=== PATIENT | male | born 1970 | race Hispanic/Latino ===

== ENCOUNTER 2018-05-01 22:28 | Emergency (ER) | payer SELFPAY ==
[2018-05-01 22:32] VITALS: BP 118/73; PULSE 106; RESP 18; TEMP 36.8; O2SAT 99
--- NOTE | 2018-05-01 22:32 | DI.RAD.S_ITS ---
PROCEDURE: XR ELBOW LT 2V INDICATIONS: severe pain post fall TECHNIQUE: 2 views of the elbow were acquired. COMPARISON: None. FINDINGS: Bones: No fractures or dislocations. No suspicious bony lesions. Soft tissues: No elbow joint effusion. No suspicious soft tissue calcifications. IMPRESSION: No fracture. No osseous lesion. If symptoms and/or clinical suspicion for pathology persists, further assessment with repeat radiographs (7-10 days) or advanced imaging (e.g. CT, MRI or bone scan) may be helpful. Dictated by: Farheen Prasad MD, PhD on 05/02/2018 at 9:19 Approved by: Farheen Prasad MD, PhD on 05/02/2018 at 9:20
--- NOTE | 2018-05-01 22:32 | DI.CT.S_ITS ---
PROCEDURE: CT THORACIC SPINE WO CON INDICATIONS: fall with severe midline bony pain TECHNIQUE: Noncontrast 3 mm thick sections acquired through the region of interest in the thoracic spine. Sagittal and coronal reformats were then constructed. For radiation dose reduction, the following was used: automated exposure control. COMPARISON: [facility], CT, CT LUMBAR SPINE WO CON, 05/01/2018, 22:48. FINDINGS: Image quality: Excellent. Bones: There is normal overall bony alignment. No acute vertebral body compression fractures. No suspicious sclerotic or lytic bony lesions. Central spinal canal is of normal overall caliber. Multilevel degenerative disc disease and facet arthropathy. Degenerative disc changes are most pronounced at the C5-C6 and C6-C7 levels. Soft tissues: No paravertebral masses or hematomas. Visualized posteromedial lungs appear clear. IMPRESSION: No fracture. No acute osseous lesion. If symptoms and/or clinical suspicion for pathology persists, evaluation with MRI may be helpful for further assessment. Dictated by: Fahreen Prasad MD, PhD on 05/02/2018 at 8:35 Approved by: Farheen Prasad MD, PhD on 05/02/2018 at 8:40
--- NOTE | 2018-05-01 22:32 | DI.CT.S_ITS ---
PROCEDURE: CT LUMBAR SPINE WO CON INDICATIONS: fall with severe midline bony pain TECHNIQUE: Noncontrast 3 mm thick sections acquired from the T12 level to the sacrum. Sagittal and coronal reformats were constructed. For radiation dose reduction, the following was used: automated exposure control. COMPARISON: None. FINDINGS: Image quality: Limited by patient motion. Bones: There is normal bony alignment. No acute vertebral body compression fractures. No suspicious lytic or blastic bony lesions. Central spinal caliber is of normal overall caliber. No pars defects. Soft tissues: No retroperitoneal masses or hematomas. Visualized aorta is normal in caliber. Scattered atherosclerotic calcifications involving the visualized abdominal and pelvic vasculature. IMPRESSION: 1. Image quality degraded by patient motion artifact. 2. No fracture or acute osseous abnormality within the limitations related to motion artifact. If symptoms and/or clinical suspicion for pathology persists, evaluation with MRI may be helpful for further assessment. Dictated by: Farheen Prasad MD, PhD on 05/02/2018 at 8:32 Approved by: Farheen Prasad MD, PhD on 05/02/2018 at 8:34
--- NOTE | 2018-05-01 22:32 | DI.RAD.S_ITS ---
PROCEDURE: XR SHOULDER LT MIN 2V INDICATIONS: pain after fall TECHNIQUE: 2 views of the shoulder were acquired. COMPARISON: None. FINDINGS: Bones: No fractures or dislocations. No suspicious bony lesions. Visualized ribs appear intact. Soft tissues: No suspicious soft tissue calcifications. IMPRESSION: No fracture. No osseous lesion. If symptoms and/or clinical suspicion for pathology persists, further assessment with repeat radiographs (7-10 days) or advanced imaging (e.g. CT, MRI or bone scan) may be helpful. Dictated by: Farheen Prasad MD, PhD on 05/02/2018 at 9:20 Approved by: Farheen Prasad MD, PhD on 05/02/2018 at 9:20
[2018-05-01] MEDS: HYDROMORPHONE 2 MG INJ 0.5 MG IM (22:49)
--- NOTE | 2018-05-01 23:16 | ED_ITS ---
HPI - Fall General Chief Complaint: Fall Stated Complaint: Fall with intoxication Time Seen by Provider: 05/01/18 22:32 Source: patient and EMS Mode of arrival: EMS History of Present Illness HPI Narrative: 47-year-old male with no significant medical history presents by EMS for the evaluation of severe left arm pain after an unwitnessed fall in the bathroom at the [facility]. He admits to having consumed 5 beers tonight. He did not strike his head and denies any loss of consciousness nor nausea or vomiting. He has severe pain in his arm and back, both of which are worsened by range of motion. He is awake, alert and oriented with GCS 15 MD complaint: fall Onset (ago): minute(s) Fall from: standing Fall witnessed: no Place fall occurred: other Loss of consciousness: none Prolonged down time: unclear Context: alcohol use Location of injury: back Related Data Previous Rx's Medication Instructions Recorded ibuprofen 600 mg PO TID-QID PRN #20 tab 05/02/18 Allergies Allergy/AdvReac Type Severity Reaction Status Date / Time No Known Drug Allergies Allergy Verified 05/01/18 22:48 Review of Systems Constitutional Denies chills, Denies fever(s), Denies lethargy and Denies weakness Eyes Denies change in vision, Denies eye discharge, Denies irritation and Denies loss of vision ENT Ears, Nose, Mouth, and Throat: Denies change in voice, Denies neck pain and Denies sore throat Cardiovascular Denies chest pain, Denies irregular heart rhythm, Denies lightheadedness, Denies palpitations, Denies dyspnea, Denies dyspnea on exertion and Denies orthopnea Respiratory Denies cough, Denies dyspnea, Denies dyspnea on exertion and Denies wheezing Gastrointestinal Gastrointestinal: Denies abdominal pain, Denies change in bowel habits, Denies diarrhea, Denies nausea and Denies vomiting Genitourinary Denies hematuria, Denies flank pain, Denies urinary incontinence and Denies urinary urgency Musculoskeletal Reports back pain, Reports joint swelling, Reports limited range of motion and Denies neck pain Integumentary/Breasts Denies pruritus, Denies erythema, Denies rash and Denies wounds Neurologic Denies confusion, Denies loss of vision and Denies weakness Psychiatric Denies anxiety, Denies confusion, Denies depression, Denies homicidal ideation and Denies suicidal ideation Endocrine Denies palpitations Hematologic/Lymphatic Denies easy bruising Allergic/Immunologic Denies wheezing Exam Narrative Exam Narrative: GENERAL: 47-year-old male, obviously in pain, clutching his left elbow which is in sling. GCS 15 HEAD: Atraumatic. Normocephalic. No temporal or scalp tenderness. EYES: Pupils equal round and reactive. Extraocular motions intact. No scleral icterus. No injection or drainage. ENT: Nose without bleeding, purulent drainage or septal hematoma. Throat without erythema, tonsillar hypertrophy or exudate. Uvula midline. Airway patent. NECK: Trachea midline. No JVD or lymphadenopathy. Supple, nontender, no meningeal signs. CARDIOVASCULAR: Regular rate and rhythm without murmurs, gallops, or rubs. RESPIRATORY: Clear to auscultation. Breath sounds equal bilaterally. No wheezes , rales, or rhonchi. GASTROINTESTINAL: Abdomen soft, non-tender, nondistended. No hepato-splenomegaly , or palpable masses. No guarding. EXTREMITIES: Decreased range of motion secondary to pain. Complains of tenderness and elbow and shoulder. No obvious deformity. No numbness, tingling or weakness. Closed BACK: Midline tenderness without step-off at mid Thoracics and upper lumbar. No numbness, tingling or weakness. No saddle anesthesia. Bilateral lower extremity reflexes 2+ NEURO: AOx3. SKIN: No rash or erythema. Initial Vital Signs Initial Vital Signs: Vital Signs Temperature 98.2 F 05/01/18 22:32 Pulse Rate 106 H 05/01/18 22:32 Respiratory Rate 18 05/01/18 22:32 Blood Pressure 118/73 05/01/18 22:32 Pulse Oximetry 99 05/01/18 22:32 Course Orders Ordered: ED Orders 05/01/18 22:32 CT lumbar spine wo con Stat CT thoracic spine wo con Stat XR elbow LT 2V Stat XR shoulder LT min 2V Stat Hydromorphone HCl (Dilaudid) 0.5 mg IM Q4H PRN PRN Reason: Pain, Severe (7-10) Last Admin: 05/01/18 22:49 Dose: 0.5 mg Vital Signs - 8 hr 05/01/18 22:32 Temperature 98.2 F Pulse Rate 106 H Respiratory Rate 18 Blood Pressure 118/73 Pulse Oximetry 99 MDM - Fall Imaging Data Shoulderl / Elbow Xray: Attestation: I personally reviewed and interpreted this imaging study as follows: My impression: Elbow - no fx or dislocation Shoulder - AC separation Thoracic / Lumbar CT: Radiologist's impression: No fracture Discharge Plan Departure Patient Disposition: Home Clinical Impression: AC separation, Lumbar pain, Left elbow pain Instructions: AC Joint Separation Activity Restrictions/Additional Instructions: *You have been diagnosed with [ fall with back and elbow pain ] *What to do: *Take medications as directed *Follow up with your primary care provider in 2-3 days, call for an appointment. Let them know you were seen in the Emergency Department and that we ask that you be seen in follow up *Return to ER if you should have any new, worsening or concerning symptoms Prescriptions: New ibuprofen 600 mg tablet 600 mg PO TID-QID PRN (Reason: pain) Qty: 20 RF: 0
--- NOTE | 2018-05-02 00:18 | PC.NURSE ---
[employer] reports during their initial call out on this pt today there was a note found stating Please take care of my daughter. During second apd contact apd reports pt stated I want someone to kill me. [employer] affidavit in chart.
[2018-05-02 01:06] VITALS: BP 112/63; PULSE 90; RESP 15; O2SAT 97
== END 2018-05-02 01:16 | disposition home or self-care (01) ==
PROVIDERS: Emergency Provider Emergency Medicine
DX: S43.109A Unspecified dislocation of unspecified acromioclavicular joint, initial encounter (principal); M54.5 Low back pain; M25.552 Pain in left hip; W19.XXXA Unspecified fall, initial encounter
CPT/HCPCS: 72128; 72131; 73030; 73070; 96372; 99282; 99284; J1170